=== PATIENT | male | born 1950 | race Caucasian/White ===

== ENCOUNTER → 2019-02-18 08:30 | Outpatient (CLI) | payer OTHER, SELFPAY ==
--- NOTE | 2019-02-18 | DI.US.S_ITS ---
PROCEDURE: US ABD AORTA ANEURYSM SCREEN INDICATIONS: AAA SCREENING TECHNIQUE: Real time scanning was performed of the aorta and iliac arteries, with image documentation. COMPARISON: None. FINDINGS: Aorta: Proximal aortic diameter measures 2.3 cm. Mid-aorta measures 1.9 cm. Distal aortic diameter is 1.9 cm. mild calcific plaque present along the distal portion. Iliac arteries: Right common iliac artery measures 1.0 cm. Left common iliac artery measures 1.0 cm. IMPRESSION: No evidence of abdominal aortic or iliac artery aneurysm. Dictated by: Leena Rocha M.D. on 02/18/2019 at 10:27 Approved by: Leena Rocha M.D. on 02/18/2019 at 10:29
== END ==
PROVIDERS: PCP Nurse Practitioner Family; Visit Provider Nurse Practitioner Family
DX: Z13.6 Encounter for screening for cardiovascular disorders (principal)
CPT/HCPCS: 76706

== ENCOUNTER → 2019-03-22 09:53 | Outpatient (CLI) | payer OTHER, SELFPAY ==
--- NOTE | 2019-03-22 | DI.RAD.S_ITS ---
PROCEDURE: XR FINGER RT MIN 2V INDICATIONS: BILAT THUMB PAIN TECHNIQUE: AP hand, 2 views of the right finger(s) acquired. COMPARISON: None. FINDINGS: Bones: No fractures or dislocations. No suspicious bony lesions. Soft tissues: No suspicious soft tissue calcifications. IMPRESSION: No fracture. If the patient's pain or other symptoms persist, consider further evaluation with MRI Dictated by: Long Swift M.D. on 03/22/2019 at 12:24 Approved by: Long Swift M.D. on 03/22/2019 at 12:26
--- NOTE | 2019-03-22 | DI.RAD.S_ITS ---
PROCEDURE: XR CERVICAL SPINE 2V OR 3V INDICATIONS: NECK PAIN TECHNIQUE: 3 view(s) of the cervical spine were acquired. COMPARISON: None. FINDINGS: Bones: No fractures or dislocations to the T1 level. The lateral masses of C1 appear intact on the odontoid view. No suspicious bony lesions. Multilevel degenerative endplate sclerosis and spurring. Diffuse facet arthropathy. Straightening of the normal lordotic curvature. Severe narrowing of the disc spaces from C3-T1. Soft tissues: No prevertebral soft tissue swelling. IMPRESSION: Severe diffuse cervical spondylosis and facet arthropathy. Dictated by: Long Swift M.D. on 03/22/2019 at 12:12 Approved by: Long Swift M.D. on 03/22/2019 at 12:13
--- NOTE | 2019-03-22 | DI.RAD.S_ITS ---
PROCEDURE: XR FINGER LT MIN 2V INDICATIONS: BILAT THUMB PAIN TECHNIQUE: AP hand, 2 views of the left finger(s) acquired. COMPARISON: None. FINDINGS: Bones: No fractures or dislocations. No suspicious bony lesions. First CMC and triscaphe joint degeneration Soft tissues: No suspicious soft tissue calcifications. IMPRESSION: Severe first CMC joint degeneration. Dictated by: Long Swift M.D. on 03/22/2019 at 12:48 Approved by: Long Swift M.D. on 03/22/2019 at 12:49
== END ==
PROVIDERS: PCP Nurse Practitioner Family; Visit Provider Nurse Practitioner Family
DX: M54.2 Cervicalgia (principal); M47.812 Spondylosis without myelopathy or radiculopathy, cervical region; M79.645 Pain in left finger(s); M18.12 Unilateral primary osteoarthritis of first carpometacarpal joint, left hand; M79.644 Pain in right finger(s)
CPT/HCPCS: 72040; 73140